=== PATIENT | male | born 1940 | race Caucasian/White ===

== ENCOUNTER 2017-05-25 03:55 | Emergency (ER) | payer MEDICARE, OTHER ==
[2017-05-25 04:01] VITALS: BP 145/74
--- NOTE | 2017-05-25 04:27 | EDM.PDOC ---
ED HPI GENERAL MEDICAL PROBLEM - General Chief Complaint: ENT Problem Stated Complaint: MEDICAL VIA [facility] Time Seen by Provider: 05/25/17 04:10 Source of Information: Reports: Patient, EMS History Limitations: Reports: No Limitations - History of Present Illness INITIAL COMMENTS - FREE TEXT/NARRATIVE: 76-year-old male, generally healthy developed right-sided epistaxis tonight and was having difficulty getting it stopped after 10-15 minutes. He never had a nosebleed in the past and it frightened him. Shortly after EMS arrived it resolved and there was no active bleeding in the emergency room. It was all right sided. No headache, recent cold symptoms, nausea or vomiting or other symptoms. He is not on anticoagulants. Onset: Sudden Duration: Hour(s): (Lasted 10-15 minutes) denies pain Pain Score (Numeric/FACES): 0 - Related Data Allergies Allergy/AdvReac Type Severity Reaction Status Date / Time No Known Allergies Allergy Verified 05/25/17 03:56 Home Meds: Home Meds NK [No Known Home Meds] 05/25/17 [History] Past Medical History HEENT History: Reports: Impaired Vision Cardiovascular History: Reports: High Cholesterol Gastrointestinal History: Reports: Other (See Below) Other Gastrointestinal History: hernia Musculoskeletal History: Reports: Arthritis, Other (See Below) Other Musculoskeletal History: right knee arthritis Psychiatric History: Reports: Anxiety - Infectious Disease History Infectious Disease History: Reports: Chicken Pox Social & Family History - Tobacco Use Smoking Status *Q: Light Tobacco Smoker Years of Tobacco use: 55 Packs/Tins Daily: 0.1 - Caffeine Use Caffeine Use: Reports: Coffee, Soda - Recreational Drug Use Recreational Drug Use: No ED ROS ENT - Review of Systems Review Of Systems: See Below Constitutional: Denies: Fever, Chills HEENT: Denies: Sinus Problem Respiratory: Denies: Shortness of Breath, Cough Cardiovascular: Denies: Chest Pain GI/Abdominal: Denies: Abdominal Pain, Nausea, Vomiting Psychiatric: Reports: Anxiety (Patient is under a lot of stress) ED EXAM, ENT - Physical Exam Exam: See Below Exam Limited By: No Limitations General Appearance: Alert, No Apparent Distress Nose: Other (There is a small amount of dried blood in the right nares, otherwise no abnormality and air is moving freely through both nostrils) Mouth/Throat: Normal Inspection, Other (No pharyngeal bleeding) Head: Atraumatic Respiratory/Chest: No Respiratory Distress, Lungs Clear Cardiovascular: Regular Rate, Rhythm Course - Vital Signs Last Recorded V/S: Last Vital Signs Temp 97.9 F 05/25/17 03:57 Pulse 72 05/25/17 03:57 Resp 17 05/25/17 03:57 BP 145/74 H 05/25/17 03:57 Pulse Ox 96 05/25/17 03:57 - Re-Assessments/Exams Free Text/Narrative Re-Assessment/Exam: 05/25/17 04:25 Patient was reassured that this is not serious. He was given an external nasal pincer to use of bleeding recurs, and can return if he can't get the bleeding controlled with external pressure. Departure - Departure Time of Disposition: 04:44 Disposition: Home, Self-Care 01 Condition: Good Clinical Impression: Epistaxis - Discharge Information Instructions: Nosebleed, [id number] Referrals: PCP,None [Primary Care Provider] - Forms: ED Department Discharge Care Plan Goals: If bleeding recurs try external pressure and leaning her head forward for 10-15 minutes. If you can't get bleeding controlled you can always return to the emergency room.
== END 2017-05-25 04:44 | disposition home or self-care (01) ==
LOC: JP.ED 03:55
DX: R04.0 Epistaxis (principal); F17.210 Nicotine dependence, cigarettes, uncomplicated; E78.00 Pure hypercholesterolemia, unspecified
CPT/HCPCS: 99282; 99284

== ENCOUNTER 2017-05-25 15:34 | Emergency (ER) | payer MEDICARE, OTHER ==
[2017-05-25 16:13] VITALS: BP 138/81
--- NOTE | 2017-05-25 16:19 | EDM.PDOC ---
ED HPI GENERAL MEDICAL PROBLEM - General Chief Complaint: ENT Problem Stated Complaint: BLOODY NOSE Time Seen by Provider: 05/25/17 15:50 Source of Information: Reports: Patient, RN Notes Reviewed History Limitations: Reports: No Limitations - History of Present Illness INITIAL COMMENTS - FREE TEXT/NARRATIVE: 76-year-old gentleman presents emergency department day complaint of nosebleed, he was evaluated early this morning with a nosebleed however at that time bleeding had stopped with compression. He states did well throughout the day unfortunately heavy bleeding was started about an hour prior to presentation was unsuccessful using compression technique at home was transported here by EMS services. Takes no medications other than occasional aspirin - Related Data Allergies Allergy/AdvReac Type Severity Reaction Status Date / Time No Known Allergies Allergy Verified 05/25/17 03:56 Home Meds: Home Meds NK [No Known Home Meds] 05/25/17 [History] Past Medical History HEENT History: Reports: Impaired Vision Cardiovascular History: Reports: High Cholesterol Gastrointestinal History: Reports: Other (See Below) Other Gastrointestinal History: hernia Musculoskeletal History: Reports: Arthritis, Other (See Below) Other Musculoskeletal History: right knee arthritis Psychiatric History: Reports: Anxiety - Infectious Disease History Infectious Disease History: Reports: Chicken Pox Social & Family History - Tobacco Use Smoking Status *Q: Never Smoker Years of Tobacco use: 55 Packs/Tins Daily: 0.1 - Caffeine Use Caffeine Use: Reports: Coffee, Soda - Recreational Drug Use Recreational Drug Use: No ED ROS ENT - Review of Systems Review Of Systems: See Below Constitutional: Reports: No Symptoms HEENT: Reports: Nosebleed Respiratory: Reports: No Symptoms Cardiovascular: Reports: No Symptoms GI/Abdominal: Reports: No Symptoms ED EXAM, ENT - Physical Exam Exam: See Below Exam Limited By: No Limitations General Appearance: Alert, Mild Distress Eye Exam: Bilateral Eye: Normal Inspection Nose: Normal Inspection, Active Bleeding, Dried Blood Mouth/Throat: Normal Inspection, Normal Gums, Normal Lips, Normal Oropharynx, Normal Teeth Head: Atraumatic, Normocephalic Neck: Normal Inspection, Supple, Non-Tender, Full Range of Motion Respiratory/Chest: No Respiratory Distress ED ENT PROCEDURES - Epistaxis Procedure Indication: Epistaxis Recent anticoagulants/antiplatlets: No Uncontrolled HTN: No Recent septal/nasal surgery: No Site of bleeding: Right Nare Clearing of clots: Patient Blew Nose Anterior Packing: Inflatable Nasal Tampon Posterior packing: Long Nasal Tampon Complications: No Course - Vital Signs Last Recorded V/S: Last Vital Signs Temp 97.0 F 05/25/17 16:11 Pulse 67 05/25/17 16:11 Resp 14 05/25/17 16:11 BP 138/81 05/25/17 16:11 Pulse Ox 97 05/25/17 16:11 Departure - Departure Time of Disposition: 16:48 Disposition: Home, Self-Care 01 Condition: Good Clinical Impression: Epistaxis - Discharge Information Referrals: PCP,None [Primary Care Provider] - Forms: ED Department Discharge Additional Instructions: Leave nasal packing in place, please try and follow-up with your primary care provider on Saturday or Saturday of this week, call or return to the emergency department worsening of symptoms - Assessment/Plan Plan: Assessment Acuity = acute Site and laterality = epistaxis right Coulter Etiology = unclear etiology Manifestations = none Location of injury = Home Lab values = none Plan Good control after 30 minutes observation with the nasal tampon plan is to have him follow-up with his primary care in the next 3-5 days for reevaluation Patient was in agreement with the plan all questions were answered, they were instructed to return to the emergency department or call for worsening symptoms. This note was dictated using [employer] voice recognition software please call with any questions.
== END 2017-05-25 17:49 | disposition home or self-care (01) ==
LOC: JP.ED 15:34
DX: R04.0 Epistaxis (principal); E78.00 Pure hypercholesterolemia, unspecified; F17.210 Nicotine dependence, cigarettes, uncomplicated
CPT/HCPCS: 30903; 99282; 99283-25; 99284

== ENCOUNTER 2017-05-27 13:11 | Emergency (ER) | payer MEDICARE, OTHER ==
[2017-05-27 13:48] VITALS: BP 134/85
--- NOTE | 2017-05-27 14:51 | EDM.PDOC ---
ED HPI GENERAL MEDICAL PROBLEM - General Chief Complaint: ENT Problem Stated Complaint: NOSEBLEED Time Seen by Provider: 05/27/17 14:42 Source of Information: Reports: Patient, RN Notes Reviewed History Limitations: Reports: No Limitations - History of Present Illness INITIAL COMMENTS - FREE TEXT/NARRATIVE: 76-year-old gentleman was evaluated in the emergency department here on Saturday for nosebleed a nasal tampon was placed he did report to the clinic today however was formed they do not take out nasal tampons, so he reports to the emergency department have a remote he's had no issues with the device as far as he knows he is not had any active bleeding - Related Data Allergies Allergy/AdvReac Type Severity Reaction Status Date / Time No Known Allergies Allergy Verified 05/27/17 13:53 Home Meds: Home Meds Ibuprofen [Advil] 200 mg PO DAILY 05/27/17 [History] Past Medical History HEENT History: Reports: Impaired Vision Cardiovascular History: Reports: High Cholesterol Gastrointestinal History: Reports: Other (See Below) Other Gastrointestinal History: hernia Musculoskeletal History: Reports: Arthritis, Other (See Below) Other Musculoskeletal History: right knee arthritis Psychiatric History: Reports: Anxiety - Infectious Disease History Infectious Disease History: Reports: Chicken Pox Social & Family History - Tobacco Use Smoking Status *Q: Never Smoker Years of Tobacco use: 55 Packs/Tins Daily: 0.1 - Caffeine Use Caffeine Use: Reports: Coffee, Soda - Recreational Drug Use Recreational Drug Use: No ED ROS ENT - Review of Systems Review Of Systems: See Below Constitutional: Reports: No Symptoms HEENT: Reports: No Symptoms Respiratory: Reports: No Symptoms ED EXAM, ENT - Physical Exam Exam: See Below Exam Limited By: No Limitations General Appearance: Alert, WD/WN, No Apparent Distress Nose: Normal Inspection, Normal Mucousa, Dried Blood, Other (5 mL air taken out of the balloon blown removed without difficulty) Course - Vital Signs Last Recorded V/S: Last Vital Signs Temp 96.4 F 05/27/17 13:52 Pulse 98 05/27/17 13:52 Resp 16 05/27/17 13:52 BP 134/85 05/27/17 13:52 Pulse Ox 94 L 05/27/17 13:52 Departure - Departure Time of Disposition: 15:21 Disposition: Home, Self-Care 01 Condition: Good Clinical Impression: Encounter for removal of nasal packing - Discharge Information Referrals: PCP,None [Primary Care Provider] - Forms: ED Department Discharge Additional Instructions: Follow-up with primary care as needed - Assessment/Plan Plan: Assessment Acuity = acute Site and laterality = nasal tampon removal Etiology = secondary to nosebleed Manifestations = none Location of injury = Home Lab values = none Plan Follow-up with primary care as needed Patient was in agreement with the plan all questions were answered, they were instructed to return to the emergency department or call for worsening symptoms. This note was dictated using [employer] voice recognition software please call with any questions.
== END 2017-05-27 15:30 | disposition home or self-care (01) ==
LOC: JP.ED 13:11
DX: Z48.00 Encounter for change or removal of nonsurgical wound dressing (principal); E78.00 Pure hypercholesterolemia, unspecified; M19.90 Unspecified osteoarthritis, unspecified site; Z79.899 Other long term (current) drug therapy
CPT/HCPCS: 99282; 99283

== ENCOUNTER 2021-08-15 23:31 | Emergency (ER) | payer MEDICARE, OTHER ==
[2021-08-15 23:37] VITALS: BP 159/80; PULSE 85
[2021-08-16] MEDS ORDERED: Meropenem 1 GM in Sodium Chloride 0.9% 100 ML IV ONE (00:20)
[2021-08-16] MEDS ORDERED: methylPREDNISolone Sodium Succinate 125 MG/2 ML SDV IVPUSH ONE (00:21)
--- NOTE | 2021-08-16 00:25 | EDM.PDOC ---
ED HPI GENERAL MEDICAL PROBLEM - General Chief Complaint: Upper Extremity Injury/Pain Stated Complaint: MEDICAL VIA [facility] Time Seen by Provider: 08/15/21 23:40 Source of Information: Reports: Patient, EMS History Limitations: Reports: No Limitations - History of Present Illness INITIAL COMMENTS - FREE TEXT/NARRATIVE: 80-year-old male with a slowly worsening inflammatory change to the left hand and wrist which started 4 days ago. No history of trauma. He feels occasional chills but does not think he is running fevers, does not feel ill. Tonight it was so painful he could not get out of his chair so they called the ambulance. He does have an appointment to have it checked in the clinic tomorrow. He does not have a history of gout, there are no abrasions or apparent skin breakdown of the area. He has not had this problem in the past. Onset: Gradual Duration: Day(s): (5 days of symptoms) Location: Reports: Upper Extremity, Left Associated Symptoms: Reports: Other (Mild intermittent chills, otherwise no other symptoms) Left Hand Pain Score (Numeric/FACES): 8 - Related Data Allergies Allergy/AdvReac Type Severity Reaction Status Date / Time No Known Allergies Allergy Verified 08/15/21 23:35 Home Meds: Home Meds Ibuprofen [Advil] 200 mg PO DAILY 05/27/17 [History] Citalopram [Citalopram HBr] 20 mg PO DAILY 01/22/20 [History] Naproxen 500 mg PO ASDIRECTED 01/22/20 [History] Past Medical History HEENT History: Reports: Impaired Vision Cardiovascular History: Reports: High Cholesterol Gastrointestinal History: Reports: Other (See Below) Other Gastrointestinal History: hernia Musculoskeletal History: Reports: Arthritis, Other (See Below) Other Musculoskeletal History: right knee arthritis Psychiatric History: Reports: Anxiety - Infectious Disease History Infectious Disease History: Reports: Chicken Pox Social & Family History - Tobacco Use Tobacco Use Status *Q: Former Tobacco User Used Tobacco, but Quit: Yes Month/Year Tobacco Last Used: 2012 - Caffeine Use Caffeine Use: Reports: Coffee - Recreational Drug Use Recreational Drug Use: No Review of Systems - Review of Systems Review Of Systems: See Below Constitutional: Reports: Chills. Denies: Fever Eyes: Reports: No Symptoms Respiratory: Reports: No Symptoms Cardiovascular: Reports: No Symptoms GI/Abdominal: Reports: No Symptoms Musculoskeletal: Reports: Arm Pain, Hand Pain Skin: Reports: Erythema Neurological: Reports: No Symptoms Psychiatric: Reports: No Symptoms ED EXAM, GENERAL - Physical Exam Exam: See Below Exam Limited By: No Limitations General Appearance: Alert, No Apparent Distress Eye Exam: Bilateral Eye: Normal Inspection Respiratory/Chest: No Respiratory Distress, Lungs Clear Cardiovascular: Regular Rate, Rhythm Extremities: Other (Exam is otherwise limited to the left arm. The patient has diffuse soft tissue swelling and edema through the hand and dorsal aspect of the wrist. There is erythema and warmth. He has significant pain with movement of the fingers. The palmar surface and flexor surface of the wrist is swollen ) Skin Exam: Erythema, Increased Warmth Course - Vital Signs Last Recorded V/S: Last Vital Signs Temp 97.8 F 08/15/21 23:32 Pulse 85 08/15/21 23:32 Resp 16 08/15/21 23:32 BP 159/80 H 08/15/21 23:32 Pulse Ox 97 08/15/21 23:32 - Orders/Labs/Meds Orders: Active Orders 24 hr Category Date Time Status Hand Comp Min 3V Lt [CR] Stat Exams 08/16/21 00:06 Taken Labs: Laboratory Tests 08/16/21 08/16/21 Range/Units 00:05 00:05 WBC 12.4 H (4.5-11.0) K/uL RBC 4.33 (4.30-5.90) M/uL Hgb 13.4 (12.0-15.0) g/dL Hct 39.5 L (40.0-54.0) % MCV 91 (80-98) fL MCH 31 (27-31) pg MCHC 34 (32-36) % Plt Count 224 (150-400) K/uL Neut % (Auto) 67.5 H (36-66) % Lymph % (Auto) 17.8 L (24-44) % Gaston % (Auto) 12.8 H (2-6) % Eos % (Auto) 1.7 L (2-4) % Baso % (Auto) 0.2 (0-1) % Sodium 140 (140-148) mmol/L Potassium 3.9 (3.6-5.2) mmol/L Chloride 106 (100-108) mmol/L Carbon Dioxide 28 (21-32) mmol/L Anion Gap 6.3 (5.0-14.0) mmol/L BUN 28 H (7-18) mg/dL Creatinine 1.0 (0.8-1.3) mg/dL Est Cr Clr Drug Dosing 64.84 mL/min Estimated GFR (MDRD) > 60 (>60) Glucose 212 H (74-106) mg/dL Calcium 8.6 (8.5-10.1) mg/dL C-Reactive Protein 5.94 H (0.0-0.3) mg/dL Meds: Medications Discontinued Medications Generic Name Dose Route Start Last Admin Trade Name Freq PRN Reason Stop Dose Admin Meropenem 1 gm/ Sodium 100 mls @ 200 mls/hr 08/16/21 00:20 08/16/21 00:31 Chloride IV 08/16/21 00:49 200 mls/hr ONETIME ONE Administration Methylprednisolone Sodium Succinate 62.5 mg 08/16/21 00:21 12 00:31 Methylprednisolone Sodium Succinate 125 Mg/2 Ml Sdv IVPUSH 08/16/21 00:22 62.5 mg ONETIME ONE Administration - Re-Assessments/Exams Free Text/Narrative Re-Assessment/Exam: 08/16/21 00:24 CBC CRP and CMP were obtained. An IV was started in the opposite arm and the patient was given 1 g of meropenem and 62.5 mg of IV Solu-Medrol. The patient is asking to go home to help take care of his , he is willing to return tomorrow morning for a reevaluation and another IV dose of antibiotic. 08/16/21 00:38 White count is elevated at 12,400, CRP is elevated at almost 6. Patient wanted to go home if possible, the IV was left in place and the edges of the cellulitis were marked. He will return at 8 AM for physician recheck and another dose of meropenem if improving. If worsening he may need CT scanning or surgical consultation as there may be extensor tendon involvement. Departure - Departure Time of Disposition: 01:25 Disposition: Home, Self-Care 01 Clinical Impression: Cellulitis of left hand - Discharge Information Instructions: Cellulitis, Adult Referrals: PCP,None [Primary Care Provider] - Forms: ED Department Discharge Care Plan Goals: Return at 8 AM for reevaluation and more IV antibiotic if improving. Sepsis Event Note (ED) - Evaluation Sepsis Screening Result: No Definite Risk - Focused Exam Vital Signs: Vital Signs Temp Pulse Resp BP Pulse Ox 08/15/21 23:32 97.8 F 85 16 159/80 H 97 - My Orders Last 24 Hours: My Active Orders 08/16/21 00:06 Hand Comp Min 3V Lt [CR] Stat - Assessment/Plan Last 24 Hours: My Active Orders 08/16/21 00:06 Hand Comp Min 3V Lt [CR] Stat
--- NOTE | 2021-08-16 09:30 | CR ---
Hand Comp Min 3V Lt CLINICAL HISTORY: Pain, no trauma FINDINGS: There is no acute fracture or dislocation of the hand. There is interphalangeal joint space narrowing. There is also mild narrowing of the MCP joints. There is moderate osteoarthritic change at the trapezium articulations. There is narrowing of the scapholunate joint. Impression: No fracture or osseous lesion Moderate diffuse degenerative changes most consistent with osteoarthritis
== END 2021-08-16 01:43 | disposition home or self-care (01) ==
LOC: JP.ED 23:31
DX: L03.114 Cellulitis of left upper limb (principal); Z87.891 Personal history of nicotine dependence
CPT/HCPCS: 36415; 73130; 80048; 85025; 86140; 96365; 96375; 99284; J2185; J2930

== ENCOUNTER 2021-08-16 07:55 | Emergency (ER) | payer MEDICARE, OTHER ==
[2021-08-16 08:11] VITALS: BP 132/70; PULSE 82
[2021-08-16] MEDS ORDERED: Meropenem 1 GM in Sodium Chloride 0.9% 100 ML IV ONE (08:19)
--- NOTE | 2021-08-16 08:23 | EDM.PDOC ---
ED HPI GENERAL MEDICAL PROBLEM - General Chief Complaint: Skin Complaint Stated Complaint: INFECTION IN L HAND Time Seen by Provider: 08/16/21 08:15 Source of Information: Reports: Patient, Old Records, RN Notes Reviewed History Limitations: Reports: No Limitations - History of Present Illness INITIAL COMMENTS - FREE TEXT/NARRATIVE: 80-year-old gentleman presents emergency department today for follow-up he was evaluated around midday yesterday found to have a cellulitis on his left hand unknown source for break in the skin received 1 dose of meropenem he states he thinks it is better the redness has improved he is able to move his fingers and wrists with reduced pain. He has not had any fevers Left Hand Pain Score (Numeric/FACES): 7 - Related Data Allergies Allergy/AdvReac Type Severity Reaction Status Date / Time No Known Allergies Allergy Verified 08/16/21 07:59 Home Meds: Home Meds Ibuprofen [Advil] 200 mg PO DAILY 05/27/17 [History] Citalopram [Citalopram HBr] 20 mg PO DAILY 01/22/20 [History] Naproxen 500 mg PO ASDIRECTED 01/22/20 [History] cephALEXin [Cephalexin] 500 mg PO TID #21 tablet 08/16/21 [Rx] Past Medical History HEENT History: Reports: Impaired Vision Cardiovascular History: Reports: High Cholesterol Gastrointestinal History: Reports: Other (See Below) Other Gastrointestinal History: hernia Musculoskeletal History: Reports: Arthritis, Other (See Below) Other Musculoskeletal History: right knee arthritis Psychiatric History: Reports: Anxiety - Infectious Disease History Infectious Disease History: Reports: Chicken Pox Social & Family History - Tobacco Use Tobacco Use Status *Q: Former Tobacco User Used Tobacco, but Quit: Yes Month/Year Tobacco Last Used: 2012 - Caffeine Use Caffeine Use: Reports: Coffee - Recreational Drug Use Recreational Drug Use: No ED ROS GENERAL - Review of Systems Review Of Systems: See Below Constitutional: Reports: No Symptoms Respiratory: Reports: No Symptoms Cardiovascular: Reports: No Symptoms GI/Abdominal: Reports: No Symptoms Skin: Reports: Erythema ED EXAM, SKIN/RASH Exam: See Below Text/Narrative:: Examination of the left hand I do appreciate the markings that were placed on his primary visit the erythema has improved it is now faint there is still amount of edema present however he has limited range of motion of the digits and wrist secondary to pain and edema radial pulses +2 it is not warm to the touch Exam Limited By: No Limitations General Appearance: Alert, WD/WN, No Apparent Distress Course - Vital Signs Last Recorded V/S: Last Vital Signs Temp 97.3 F 08/16/21 08:07 Pulse 82 08/16/21 08:07 Resp 16 08/16/21 08:07 BP 132/70 08/16/21 08:07 Pulse Ox - Orders/Labs/Meds Meds: Medications Discontinued Medications Generic Name Dose Route Start Last Admin Trade Name Lázaro PRN Reason Stop Dose Admin Meropenem 1 gm/ Sodium 100 mls @ 200 mls/hr 08/16/21 08:19 08/16/21 08:29 Chloride IV 08/16/21 08:48 200 mls/hr ONETIME ONE Administration Departure - Departure Time of Disposition: 09:05 Disposition: Home, Self-Care 01 Condition: Fair Clinical Impression: Cellulitis of left hand - Discharge Information Instructions: Cellulitis, Adult Referrals: Eli Carrillo DO [Primary Care Provider] - Forms: ED Department Discharge Additional Instructions: Your antibiotics have been faxed to [facility] pharmacy, take full course of antibiotics for 7 days, please followup with your primary care provider in 3-5 days if not better, please call return to the emergency department with worsening of symptoms. Sepsis Event Note (ED) - Focused Exam Vital Signs: Vital Signs Temp Pulse Resp BP 08/16/21 08:07 97.3 F 82 16 132/70 - Assessment/Plan Plan: Assessment Acuity = acute Site and laterality = cellulitis left hand Etiology = bacterial cause Manifestations = edema hand Location of injury = Home Lab values = none Plan Given 1 g meropenem again in the emergency department plan is to change to cephalexin 500 mg p.o. 3 times daily x7 days follow-up primary care 3 to 5 days if no improvement This note was dictated using [employer] voice recognition software please call with any questions on syntax or grammar.
== END 2021-08-16 09:16 | disposition home or self-care (01) ==
LOC: JP.ED 07:55
DX: L03.114 Cellulitis of left upper limb (principal); Z87.891 Personal history of nicotine dependence
CPT/HCPCS: 96365; 99282; J2185

== ENCOUNTER 2021-08-23 10:56 | Emergency (ER) | payer MEDICARE, OTHER ==
[2021-08-23 11:20] VITALS: BP 144/83; PULSE 92
--- NOTE | 2021-08-23 11:48 | EDM.PDOC ---
ED HPI GENERAL MEDICAL PROBLEM - General Chief Complaint: Wound Recheck Stated Complaint: L HAND INFECTION Time Seen by Provider: 08/23/21 11:41 Source of Information: Reports: Patient, Old Records, RN Notes Reviewed History Limitations: Reports: No Limitations - History of Present Illness INITIAL COMMENTS - FREE TEXT/NARRATIVE: 81-year-old gentleman presents emergency department today for wound check he had cellulitis on his left knee left hand did do 7-day course of Keflex he said is significantly improved he still has a small amount of edema appreciated in the hand as well as redness that will come and go he has completed the 7-day course he does have a follow-up appointment with his primary care next month Left Hand Pain Score (Numeric/FACES): 5 - Related Data Allergies Allergy/AdvReac Type Severity Reaction Status Date / Time No Known Allergies Allergy Verified 08/16/21 07:59 Home Meds: Home Meds Ibuprofen [Advil] 200 mg PO DAILY 05/27/17 [History] Citalopram [Citalopram HBr] 20 mg PO DAILY 01/22/20 [History] Naproxen 500 mg PO ASDIRECTED 01/22/20 [History] cephALEXin [Cephalexin] 500 mg PO TID #21 tablet 08/16/21 [Rx] cephALEXin [Keflex] 500 mg PO TID #21 cap 08/23/21 [Rx] Past Medical History HEENT History: Reports: Impaired Vision Cardiovascular History: Reports: High Cholesterol Gastrointestinal History: Reports: Other (See Below) Other Gastrointestinal History: hernia Musculoskeletal History: Reports: Arthritis, Other (See Below) Other Musculoskeletal History: right knee arthritis Psychiatric History: Reports: Anxiety - Infectious Disease History Infectious Disease History: Reports: Chicken Pox Social & Family History - Tobacco Use Tobacco Use Status *Q: Former Tobacco User Used Tobacco, but Quit: Yes Month/Year Tobacco Last Used: 20+ years ago - Caffeine Use Caffeine Use: Reports: Coffee ED ROS GENERAL - Review of Systems Review Of Systems: See Below Constitutional: Reports: No Symptoms Skin: Reports: Rash ED EXAM, SKIN/RASH Exam: See Below Text/Narrative:: Since I had the opportunity see him last week small amount of erythema is appreciated over the MCP area dorsal surface between digits 3 and 4 mild amount edema appreciated in the hand itself full range of motion all digits radial pulses +2 Course - Vital Signs Last Recorded V/S: Last Vital Signs Temp 95.7 F L 08/23/21 11:18 Pulse 92 08/23/21 11:18 Resp 16 08/23/21 11:18 BP 144/83 H 08/23/21 11:18 Pulse Ox 98 08/23/21 11:18 Departure - Departure Time of Disposition: 11:47 Disposition: Home, Self-Care 01 Condition: Fair Clinical Impression: Cellulitis of left hand - Discharge Information Instructions: Cellulitis, Adult Referrals: Eli Carrillo DO [Primary Care Provider] - Additional Instructions: Take full course of antibiotics, keep follow-up appointment with your primary care call return to the emergency department worsening of symptoms Sepsis Event Note (ED) - Evaluation Sepsis Screening Result: No Definite Risk - Focused Exam Vital Signs: Vital Signs Temp Pulse Resp BP Pulse Ox 08/23/21 11:18 95.7 F L 92 16 144/83 H 98 - Assessment/Plan Plan: Assessment Acuity = acute Site and laterality = cellulitis left hand Etiology = bacterial cause Manifestations = none Location of injury = Home Lab values = none Plan Because he still having intermittent erythema I went ahead and continued his course of Keflex 500 mg p.o. 3 times daily for another 7 days keep follow-up appointment with his primary care This note was dictated using [employer] voice recognition software please call with any questions on syntax or grammar.
== END 2021-08-23 11:53 | disposition home or self-care (01) ==
LOC: JP.ED 10:56
DX: L03.114 Cellulitis of left upper limb (principal); Z87.891 Personal history of nicotine dependence
CPT/HCPCS: 99282